=== PATIENT | female | born 1955 | race Asian ===

== ENCOUNTER 2023-04-21 11:28 | Inpatient (IN) | payer BC ==
[~2023-04-21] VITALS: Ht 162.6 cm; Wt 54.4 kg
[2023-04-21 11:42] VITALS: BP 114/66; PULSE 91; RESP 20; TEMP 97.6; O2SAT 99
[2023-04-21 13:07] LABS: BASOPHILS # (AUTO) 0.3 K/uL (0.00-0.22); EOSINOPHILS % (AUTO) 0.4 % (0.0-4.0); HEMATOCRIT 30.3 % (36-48); HEMOGLOBIN 9.7 g/dL (12.0-16.0); LYMPHOCYTES # (AUTO) 0.8 K/uL (2.5-16.5); LYMPHOCYTES % (AUTO) 11.7 % (20.5-51.1); MEAN CORPUSCULAR HEMOGLOBIN 33 pg (27-31); MEAN CORPUSCULAR HGB CONC 32 g/dL (33-37); MEAN CORPUSCULAR VOLUME 104.5 fL (80-94); MONOCYTES # (AUTO) 0.4 K/uL (0.8-1.0); MONOCYTES % (AUTO) 6.1 % (1.7-9.3); NEUTROPHILS % (AUTO) 77.8 % (42.2-75.2); PLATELET COUNT (AUTO) 551 K/uL (140-450); RED CELL DISTRIBUTION WIDTH 16.4 % (11.6-13.7); WHITE BLOOD COUNT (AUTO) 6.4 K/uL (4.8-10.8)
--- NOTE | 2023-04-21 13:09 | NUR ---
PT SWABBED FOR COVID AND FLU, GIVEN TO LAB
[2023-04-21 13:28] LABS: ALBUMIN 2.9 g/dL (3.4-5.0); ANION GAP 13.6 (8-16); CREATININE 0.7 mg/dL (0.6-1.3); POTASSIUM 3.6 mmol/L (3.5-5.1); TOTAL BILIRUBIN 0.6 mg/dL (0.0-1.0)
[2023-04-21 13:59] LABS: PROTHROMBIN TIME 11.7 secs (10.8-13.4)
[2023-04-21] MEDS ORDERED: NACL 0.9% 1,000 ML IV ONE (14:00)
--- NOTE | 2023-04-21 14:24 | NUR ---
PATIENT WENT TO CT
--- NOTE | 2023-04-21 14:30 | NUR ---
PATIENT BACK FROM CT
[2023-04-21] MEDS ORDERED: AZITHROMYCIN 500 MG in DEXTROSE 5% 250 ML IV ONE (16:30)
[2023-04-21] MEDS ORDERED: AZITHROMYCIN 500 MG INJ VIAL IV ONE (16:31)
[2023-04-21] MEDS ORDERED: cefTRIAXone 1,000 MG VIAL ONE (16:31)
[2023-04-21] MEDS ORDERED: HYDROcodone/APAP 5/325 MG 1 TAB TAB PO PRN (17:05)
[2023-04-21] MEDS ORDERED: LORazepam 1 MG TAB PO PRN (17:05)
[2023-04-21] MEDS ORDERED: POTASSIUM CHLORIDE 10 MEQ TABER PO PRN (17:05)
[2023-04-21] MEDS ORDERED: ACETAMINOPHEN 325 MG TAB PO PRN (17:05)
[2023-04-21] MEDS ORDERED: FUROSEMIDE 40 MG/4 ML VIAL IVP ONE (17:05)
[2023-04-21] MEDS ORDERED: ONDANSETRON 4 MG/2 ML VIAL IVP PRN (17:05)
[2023-04-21] MEDS ORDERED: KCL 20 MEQ IN 100 mL PREMIX 200 ML IV PRN (17:05)
[2023-04-21] MEDS ORDERED: MORPHINE SULFATE 4 MG/ML SYR IVP PRN (17:05)
[2023-04-21] MEDS ORDERED: ZOLPIDEM 5 MG TAB PO PRN (17:05)
[2023-04-21 17:18] LABS: APPEARANCE,URINE CLEAR (CLEAR); BILIRUBIN,URINE NEGATIVE (NEGATIVE); BLOOD, URINE NEGATIVE (NEGATIVE); COLOR,URINE YELLOW (YELLOW); LEUKOCYTE ESTERASE ,URINE NEGATIVE (NEGATIVE); NITRITE, URINE NEGATIVE (NEGATIVE); PH,URINE 6.5 (5.0-9.0); UGLUCOSE NEGATIVE (NEGATIVE)
[2023-04-21] MEDS ORDERED: HYDR500C7 PO (19:18)
--- NOTE | 2023-04-21 20:30 | NUR ---
Called [facility] to follow-up with admitting MD for orders regarding patient's maintenance medications. Awaiting new orders.
[2023-04-21] MEDS ORDERED: ASPI-1749 PO (20:32)
[2023-04-21 21:32] VITALS: BP 111/50; PULSE 85; RESP 18; TEMP 96.5; O2SAT 97
--- NOTE | 2023-04-21 21:40 | NUR ---
RECEIVED REPORT FROM ER NURSE LORETTA FOR CONTINUITY OF CARE. PATIENT IS A&O X4,CANTONESE SPEAKING. PATIENT IS ON ROOM AIR; BREATHING IS NORMAL WITH SYMMETRICAL RISE AND FALL OF CHEST. IV IS A 20G LAC; NO FLUIDS RUNNING AT THIS TIME (SALINE LOCKED). PATIENT WAS ABLE TO AMBULATE FROM THE GURNEY TO THE BED WITH A STEADY GAIT. PATIENT IS SITTING UP IN BED WITH FAMILY MEMBER AT BEDSIDE. PATIENT'S BED IS IN LOWEST POSITION, WHEELS LOCKED, CALL LIGHT IN PLACE. WILL CONTINUE TO OBSERVE PATIENT.
--- NOTE | 2023-04-21 21:40 | NUR ---
Patient will be admitted to care of Dr. Menjivar. Admited to Telemetry. Will go to room 108B. Belongings list completed. Report to Graeme BONDS.
[2023-04-21] MEDS: FUROSEMIDE 20 MG/2 ML VIAL IVP SCH (21:53)
[2023-04-22] VITALS (8 sets, daily range): BP systolic 95–109; BP diastolic 53–63; PULSE 78–96; RESP 16–18; TEMP 96.3–98; O2SAT 94–99
--- NOTE | 2023-04-22 01:00 | NUR ---
LOOKED IN ON PATIENT. PATIENT IS SLEEPING, LYING SUPINE. BREATHING IS NORMAL WITH SYMMETRICAL RISE AND FALL OF CHEST. CALL LIGHT IS IN REACH; WILL CONTINUE TO OBSERVE PATIENT.
--- NOTE | 2023-04-22 04:30 | NUR ---
PATIENT SLEPT THROUGHOUT THE NIGHT. BREATHING IS NORMAL WITH SYMMETRICAL RISE AND FALL OF CHEST. BED IS IN LOWEST POSITION, WHEELS LOCKED, CALL LIGHT IN PLACE. WILL CONTINUE TO OBSERVE PATIENT.
[2023-04-22 06:26] LABS: EOSINOPHILS % (AUTO) 0.4 % (0.0-4.0); HEMATOCRIT 26.7 % (36-48); HEMOGLOBIN 8.5 g/dL (12.0-16.0); LYMPHOCYTES % (AUTO) 19.8 % (20.5-51.1); MEAN CORPUSCULAR HEMOGLOBIN 33 pg (27-31); MEAN CORPUSCULAR HGB CONC 32 g/dL (33-37); MEAN CORPUSCULAR VOLUME 103.9 fL (80-94); MONOCYTES # (AUTO) 0.4 K/uL (0.8-1.0); MONOCYTES % (AUTO) 9.1 % (1.7-9.3); NEUTROPHILS # (AUTO) 3.4 K/uL (1.8-7.7); NEUTROPHILS % (AUTO) 69.7 % (42.2-75.2); PLATELET COUNT (AUTO) 477 K/uL (140-450); RED BLOOD CELL COUNT(AUTO) 2.57 MIL/uL (4.20-5.40); RED CELL DISTRIBUTION WIDTH 16.4 % (11.6-13.7); WHITE BLOOD COUNT (AUTO) 4.8 K/uL (4.8-10.8)
[2023-04-22 06:28] LABS: ANION GAP 12.4 (8-16); CARBON DIOXIDE 28.1 mmol/L (21-32); CREATININE 0.6 mg/dL (0.6-1.3); POTASSIUM 3.5 mmol/L (3.5-5.1)
--- NOTE | 2023-04-22 07:53 | NUR ---
ENDORSED TO DAY SHIFT NURSE REGINE FOR CONTINUITY OF CARE. PATIENT IS STABLE.
--- NOTE | 2023-04-22 07:54 | NUR ---
RECEIVED BEDSIDE REPORT FROM NIGHTSHIFT NURSE. PT ASLEEP IN BED, STABLE, WOKE TO NAME AND TOUCH, NO SIGNS OF DISTRESS/DISCOMFORT. CALL LIGHT IS WITHIN REACH. WILL CONTINUE WITH PT CARE.
--- NOTE | 2023-04-22 08:51 | NUR ---
PATIENT HAS BEEN SCREENED AND CATEGORIZED HIGH NUTRITION RISK. PATIENT WILL BE SEEN WITHIN 1-2 DAYS OF ADMISSION. 04/22/23-04/23/[address]
[2023-04-22] MEDS ORDERED: HYDROXYUREA 500 MG CAP PO SCH (09:00)
[2023-04-22] MEDS: FUROSEMIDE 20 MG/2 ML VIAL IVP SCH ×2 (09:04→20:12)
[2023-04-22] MEDS: DOCUSATE SODIUM 100 MG GELCAP PO SCH (09:04)
[2023-04-22] MEDS: ASPIRIN 81 MG TAB.CHEW PO SCH (09:09)
[2023-04-22] MEDS: AZITHROMYCIN 500 MG in DEXTROSE 5% 250 ML IV SCH (11:16)
--- NOTE | 2023-04-22 13:00 | NUR ---
IV LEAKING. NEW IV STARTED ON LEFT FOREARM 22G. NEW IV PATENT AND INTACT. CALL LIGHT IS WITHIN REACH. WILL CONTINUE WITH PT CARE.
--- NOTE | 2023-04-22 13:26 | NUR ---
04/22/23 RD INITIAL ASSESSMENT COMPLETED PLEASE REFER TO NUTRITION ASSESSMENT UNDER CARE ACTIVITY FOR ESTIMATED NUTRITIONAL NEEDS. 1. CONTINUE CARDIAC DIET TOLERATED 2. RD NOTED FOODS PATIENT WOULD LIKE AND WILL ADD TO MEALS TO INCREASE APPETITE. 3. RD WILL CONTINUE TO MONITOR PO INTAKE, WEIGHT, AND NUTRITION RELATED LAB VALUES. 4. RD TO FOLLOW-UP 3-5 DAYS, MODERATE RISK JULISSA MEZA, RD
--- NOTE | 2023-04-22 19:00 | NUR ---
ENDORSED TO NIGHTSHIFT NURSE FOR CONTINUITY OF CARE. PT STABLE, IN BED. NO SIGNS OF DISTRESS, NO REPORTS OF PAIN/DISCOMFORT. CALL LIGHT IS WITHIN REACH.
--- NOTE | 2023-04-22 19:30 | NUR ---
RECEIVED PT FROM DAY RN FOR CONTINUITY OF CARE. PT AWAKE, ALERT AND ORIENTED X 4, ON ROOM AIR,BREATHING EVEN AND UNLABORED.NO S/SX OF DISTRESS AT THE MOMENT. PT IS AMBULATORY. CANTONESE SPEAKING. PT PREFERS TO CALL FAMILY, XANDER FOR TRANSLATION. ALL PRECAUTIONS IN PLACE. CALL LIGHT WITHIN REACH. WILL CONTINUE TO MONITOR.
--- NOTE | 2023-04-22 21:00 | NUR ---
SCHEDULED MEDICATIONS GIVEN.PT TOLERATED WELL. BULWARK CARPENTER USED TO EXPLAIN MEDICATIONS AND DISCUSS POC. BULWARK CARPENTER PADMINI ID # [id number].
[2023-04-23] VITALS: BP 106/62; PULSE 93; PULSE 95; RESP 18; TEMP 97.8; O2SAT 96
[2023-04-23 04:00] VITALS: BP 112/60; PULSE 91; PULSE 95; RESP 18; TEMP 97.9; O2SAT 99
--- NOTE | 2023-04-23 04:00 | NUR ---
VITALS ARE STABLE. NO ACUTE DISTRESS NOTED. ALL PRECAUTIONS IN PLACE. WILL CONTINUE TO MONITOR.
[2023-04-23 06:01] LABS: BASOPHILS # (AUTO) 0.1 K/uL (0.00-0.22); BASOPHILS % (AUTO) 1.9 % (0.0-2.0); EOSINOPHILS % (AUTO) 0.6 % (0.0-4.0); HEMATOCRIT 27.2 % (36-48); HEMOGLOBIN 8.7 g/dL (12.0-16.0); LYMPHOCYTES # (AUTO) 1.2 K/uL (2.5-16.5); LYMPHOCYTES % (AUTO) 26.9 % (20.5-51.1); MEAN CORPUSCULAR HEMOGLOBIN 33 pg (27-31); MEAN CORPUSCULAR HGB CONC 32 g/dL (33-37); MEAN CORPUSCULAR VOLUME 103.1 fL (80-94); MONOCYTES # (AUTO) 0.4 K/uL (0.8-1.0); MONOCYTES % (AUTO) 9.5 % (1.7-9.3); NEUTROPHILS # (AUTO) 2.7 K/uL (1.8-7.7); NEUTROPHILS % (AUTO) 61.1 % (42.2-75.2); PLATELET COUNT (AUTO) 501 K/uL (140-450); RED BLOOD CELL COUNT(AUTO) 2.64 MIL/uL (4.20-5.40); RED CELL DISTRIBUTION WIDTH 16.6 % (11.6-13.7); WHITE BLOOD COUNT (AUTO) 4.4 K/uL (4.8-10.8)
[2023-04-23 06:46] LABS: CARBON DIOXIDE 29.3 mmol/L (21-32); CREATININE 0.6 mg/dL (0.6-1.3); POTASSIUM 3.3 mmol/L (3.5-5.1)
--- NOTE | 2023-04-23 06:58 | NUR ---
PT IS STABLE. NO ACUTE EVENTS THROUGHOUT THE NIGHT. PT NO SIGNS AND SYMPTOMS OF DISTRESS NOTED. ALL NEEDS MET. NO COMPLAINS OF PAIN AT THE MOMENT.ALL PRECAUTIONS IN PLACE. CALL LIGHT WITHIN REACH. WILL ENDORSE TO DAY SHIFT NURSE.
[2023-04-23 07:15] VITALS: O2SAT 99
--- NOTE | 2023-04-23 07:16 | NUR ---
RECEIVED PT ON ROOM AIR, SATURATION 99%. NO SOB, NO DISTRESS, NO WHEEZE HEARD ON AUSCULTATION. CALL LIGHT WITHIN REACH OF PATIENT. WILL CONTINUE TO MONITOR.
--- NOTE | 2023-04-23 07:30 | NUR ---
RECEIVED PATIENT FROM PM NURSE FOR CONTINUATION OF CARE. PATIENT SEEN ON BED AWAKE WITH NO CONCERNS TO VERBALIZE OF THE MOMENT
[2023-04-23 08:00] VITALS: BP 120/73; PULSE 90; PULSE 94; RESP 18; TEMP 96.8; O2SAT 90; O2SAT 97
[2023-04-23] MEDS: ASPIRIN 81 MG TAB.CHEW PO SCH (08:31)
[2023-04-23] MEDS: AZITHROMYCIN 500 MG in DEXTROSE 5% 250 ML IV SCH (08:51)
[2023-04-23] MEDS: DOCUSATE SODIUM 100 MG GELCAP PO SCH (09:00)
[2023-04-23] MEDS ORDERED: HYDROXYUREA 500 MG CAP PO SCH (09:00)
[2023-04-23] MEDS: FUROSEMIDE 20 MG/2 ML VIAL IVP SCH (09:03)
[2023-04-23] MEDS ORDERED: CEFP200T20 PO (12:10)
[2023-04-23] MEDS ORDERED: AZIT500T8 PO (12:10)
[2023-04-23 13:10] VITALS: BP 120/73; PULSE 90; RESP 18; TEMP 96.8
== END 2023-04-23 14:00 | disposition home or self-care (01) | DRG 193 ==
LOC: MED 11:28 → MTU 17:13 → OBSVTOIN 17:13 → MTU 21:27
PROVIDERS: ADMIT Internal Medicine; ATTEND Internal Medicine
DX: J18.9 Pneumonia, unspecified organism (principal); I50.31 Acute diastolic (congestive) heart failure; I31.39 Other pericardial effusion (noninflammatory); I11.0 Hypertensive heart disease with heart failure; D75.839 Thrombocytosis, unspecified; D64.9 Anemia, unspecified; Z20.822 Contact with and (suspected) exposure to COVID-19
CPT/HCPCS: 36415; 36600; 71045; 71275; 76604; 80048; 80053; 81003; 82803; 83605; 83735; 83880; 84484; 85025; 85379; 85610; 85730; 87040; 87081; 87086; 93005; 96365; 96367; 99285; J0456; J0696; J1644; J1940; J2270; J7060; Q0092; Q9967